=== PATIENT | female | born 1950 ===

== ENCOUNTER 2016-11-22 07:44 | Day surgery (SDC) | payer MEDICARE, OTHER ==
[~2016-11-22] VITALS: Ht 157.5 cm; Wt 76.7 kg
[2016-11-22] VITALS (8 sets, daily range): BP systolic 123–135; BP diastolic 65–74
[~2016-11-22 07:44] MED LIST: GLUCOPHAGE500 MG PO; KLONOPIN0.5 MG PO; LEVOXYL100 MCG PO; SERTRALINE HCL50 MG PO; SIMVASTATIN10 MG PO
[2016-11-22] MEDS ORDERED: LR 1000ml 1,000 ML IVLG SCH ×2 (08:05→09:11)
[2016-11-22] MEDS ORDERED: Lidocaine 1% MPF 10mg/ml 5ml ONE (08:45)
[2016-11-22] MEDS ORDERED: LR 1000ml ONE (08:45)
[2016-11-22] MEDS ORDERED: Propofol 10mg/ml 20ml IV ONE (08:45)
--- NOTE | 2016-11-22 08:49 | Short Stay Surgery H&P ---
History of Present Illness History of Present Illness Chief Complaint Abdominal pains/screening for colon cancer HPI Rabia Ibarra is a 66 year old female who was admitted on for Abdominal Pain/ screening colon Patient History Allergies: Coded Allergies: PENICILLINS (Verified Allergy, 03/13/12) UNABLE TO REMEMBER. "SO LONG AGO" PAST MEDICAL HISTORY: Past Surgeries: Social History: Medication History Scheduled Clonazepam* (Klonopin*), 0.5 MG PO HS, (Reported) Levothyroxine Sodium* (Levoxyl*), 100 MCG PO DAILY, (Reported) Metformin Hcl* (Glucophage*), 500 MG PO DAILY, (Reported) Sertraline Hcl* (Zoloft*), 50 MG PO DAILY, (Reported) Simvastatin (Zocor), 10 MG PO QHS, (Reported) Review of Systems Cardiovascular: Reports: no symptoms Respiratory: Reports: no symptoms Skeletal: Reports: no symptoms Gastrointestinal: Reports: gastro esophageal reflux disease Genitourinary: Reports: no symptoms Neurologic: Reports: no symptoms Endocrine: Reports: diabetes - type 2 Hematologic: Reports: no symptoms Physical Exam Vital Signs Last Vital Signs Date Time Temp Pulse Resp B/P Pulse Ox O2 Delivery O2 Flow Rate FiO2 11/22/16 08:13 97.8 60 18 129/65 95 Room Air Skin: normal HENT: normal Heart: normal Lungs: normal Abdomen: normal Extremities: normal Genitourinary: normal Plan Plan of Care Uppr and lower Gi endoscopy Preop Interventions None. Summary of Findings See the reports. Final Diagnosis: Attestation Are the patient's medical conditions optimized for surgery? Attestation Response: yes NISHI TURNER Nov 22, 2016 08:49
--- NOTE | 2016-11-22 08:50 | Pre-Procedure Note/Attestation ---
Pre-Procedure Note/Attestation Complete Prior to Procedure Planned Procedure: left Procedure Narrative: Upper and lower Gi endoscopy with possible biopsy Indications for Procedure Pre-Operative Diagnosis: R/O peptic ulcer/colon tumor/polyp Attestation I attest that I discussed the nature of the procedure; its benefits; risks and complications; and alternatives (and the risks and benefits of such alternatives ), prior to the procedure, with the patient (or the patient's legal solar sales representative). I attest that, if there was a reasonable possibility of needing a blood transfusion, the patient (or the patient's legal solar sales representative) was given the [facility] standardized written summary, pursuant to the [place] Blood Safety Act ([place] Health and Safety Code # 1645, as amended). I attest that I re-evaluated the patient just prior to the surgery and that there has been no change in the patient's H&P, except as documented below: YUE,SAID Nov 22, 2016 08:50
--- NOTE | 2016-11-22 09:11 | Anethesia Preoperative Eval ---
Anesthesia Pre-op PMH/ROS General Date of Evaluation: Nov 22, 2016 Time of Evaluation: 08:42 Anesthesiologist: scott ASA Score: ASA 2 Mallampati Score Class I : Soft palate, uvula, fauces, pillars visible Class II: Soft palate, uvula, fauces visible Class III: Soft palate, base of uvula visible Class IV: Only hard plate visible Mallampati Classification: Class II Surgeon: lauren Diagnosis: abdominal pain Surgical Procedure: gd/colonoscopy Anesthesia History: none Family History: no anesthesia problems Allergies: Coded Allergies: PENICILLINS (Verified Allergy, 03/13/12) UNABLE TO REMEMBER. "SO LONG AGO" Medications: see eMAR Past Medical History Neurologic/Psychiatric: Reports: depression/anxiety Endocrine: Reports: hypothyroidism Musculoskeletal/Integumentary: Reports: OA Anesthesia Pre-op Phys. Exam Physician Exam Last Vital Signs Date Time Temp Pulse Resp B/P Pulse Ox O2 Delivery O2 Flow Rate FiO2 11/22/16 08:13 97.8 60 18 129/65 95 Room Air Constitutional: NAD Neurologic: CN 2-12 intact Cardiovascular: RRR Respiratory: CTA Gastrointestinal: S/NT/ND Airway Exam Mallampati Score: Class II MO: full Neck: supple TMD: 2fb ROM: full Teeth: intact Anesthesia Pre-op A/P Risk Assessment & Plan Assessment: abd pain Plan: egd/colonoscopy Status Change Before Surgery: No Pre-Antibiotics Drug: ALIZE Tirado Nov 22, 2016 09:11
[2016-11-22] MEDS ORDERED: Hydromorphone 0.5mg/0.5ml inj IVP PRN (09:15)
[2016-11-22] MEDS ORDERED: Atropine Inj 1mg/10ml Syr IV PRN (09:15)
[2016-11-22] MEDS ORDERED: DiphenhydrAMINE 50mg/ml Inj IVP PRN (09:15)
[2016-11-22] MEDS ORDERED: Midazolam 2mg/2ml Inj IVP PRN (09:15)
--- NOTE | 2016-11-22 09:15 | Immediate Post-Op Evaluation ---
Immediate Post-Op Evalulation Immediate Post-Op Evalulation Procedure: egd/colonocopy Date of Evaluation: Nov 22, 2016 Time of Evaluation: 09:40 IV Fluids: lr 350ml Blood Products: none Estimated Blood Loss: negligible Blood Pressure Systolic: 135 Blood Pressure Diastolic: 70 Pulse Rate: 60 Respiratory Rate: 18 O2 Sat by Pulse Oximetry: 97 Temperature (Fahrenheit): 97.6 Pain Score (1-10): 0 Nausea: No Vomiting: No Complications none Patient Status: awake, reacts, patent Hydration Status: adequate Drug: ALIZE Tirado Nov 22, 2016 09:15
--- NOTE | 2016-11-22 09:18 | Endoscopy Procedure Note ---
Endoscopy Procedure Note Indication for Procedure: Abdominal pain/screening colon Procedures Performed: EGD - Small Hiatal hernia otherwise normal upper GI endoscopy. Biopsy obtained per random from gastric body., colonoscopy - Extremely difficult colonoscopy due to significant redundany of colon and poor prep. Internal hemorrhoids. Specimen: yes Pt Tolerated Procedure Well: Yes Estimated Blood Loss: none Anesthesiologist: Dr. Chery Anesthesia: moderate sedation Medication Given: see anesthesia record Implant(s) used?: No 50 yrs or older w/o bx or poly: Yes 10yrs. F/U not recommended: Yes If not recommended, why?: Med reason:<3 yrs.: Last colonoscopy >= to 3yrs: Yes NISHI TURNER Nov 22, 2016 09:18
--- NOTE | 2016-11-22 09:20 | Discharge Instructions ---
Discharge Instructions Discharge Instructions Follow up with: See the doctor in office after 2 weeks. For Congestive Heart Failure Reminder Report to your physician any weight gain of 5 pounds or more in one week. NISHI TURNER Nov 22, 2016 09:20
--- NOTE | 2016-11-22 11:01 | Operative Note - Dictated ---
DATE OF OPERATION: 11/22/2016 SURGEON: Susy Deleon M.D. PROCEDURE: Esophagogastroduodenoscopy with biopsy. PREOPERATIVE DIAGNOSES: 1. Abdominal pain. 2. Heartburn. POSTOPERATIVE DIAGNOSES: 1. Small hiatal hernia. 2. Otherwise normal upper gastrointestinal endoscopy. Biopsy was taken per random from gastric body. MEDICATION USED: Per Dr. Chery. INSTRUMENT: GIF Olympus upper gastrointestinal video endoscope. DESCRIPTION OF PROCEDURE: The patient after arriving an endoscopy unit, was told about risks and benefits of the procedure, which she accepted and signed the informed consent. She was then put on the left lateral decubitus position. After adequate IV sedation, the scope was gently passed through the cricopharyngeal area, was lodged into the upper esophagus, and gradually advanced towards gastroesophageal junction. The entire length of the esophagus looked normal. There was however evidence of a small hiatal hernia of no great significance and there was no Grady's. At this time, the scope was gradually advanced into the stomach. Gastric cavity was distended. Insufflation of air produced adequate visualization of the fundus and the body and the antrum which they all looked normal. No evidence of inflammatory process, ulceration, tumor polyps etc. was found. One random biopsy from gastric body obtained. Subsequently, scope was passed through the pylorus. First and second portion of duodenum was found to be also normal. Finally, scope was pulled out. The procedure was terminated. The patient tolerated the procedure well. Susy Deleon M.D. DR: TWILA JOB#: [id number] CC:
--- NOTE | 2016-11-22 11:31 | Operative Note - Dictated ---
SURGEON: Susy Deleon M.D. PROCEDURE: Total colonoscopy. PREOPERATIVE DIAGNOSIS: Screening colon. POSTOPERATIVE DIAGNOSES: Evidence of internal hemorrhoids and hemorrhoidal tag. Otherwise, complete normal total colonoscopy with significant difficult procedure due to high redundancy of the colon and poor preparation. MEDICATION USED: Per Dr. Chery. INSTRUMENT: GIF Olympus videocolonoscope. DESCRIPTION OF PROCEDURE: The patient after arriving endoscopy unit, was told about risks and benefits of the procedure, which she accepted and signed the informed consent. She was then put on the left lateral decubitus position. After adequate IV sedation, the scope was gently passed through the anal area, which revealed evidence of large hemorrhoidal tags and retroflexion maneuver, which was applied here revealed evidence of minimal internal hemorrhoids of no great significance. The colon cleanup was completely poor due to lack of adequate preparation and this made the examination quite difficult especially with the attention to the fact that the colon was highly redundant and significant amount of time with multiple attempts made to passed through this redundancy of the colon which was mostly in the left side. Finally, the scope was gradually passed toward the splenic flexure from the transverse colon, hepatic flexure, right colon all the way to the base of the cecum. There was no any particular visualized abnormalities such as polyps, tumors, strictures, inflammatory process, ulcers, etc. No one cannot rule out a small hyperplastic polyps due to lack of adequate preparation. At this point, upon reaching to the base of the cecum within 8 minutes, the scope was gradually pulled out and re-evaluation did not add any other abnormalities. The patient tolerated the procedure well and left the endoscopy room in a good condition. Susy Deleon M.D. DR: LUCITA JOB#: [id number] CC:
--- NOTE | 2016-11-22 15:51 | 48 Hour Post Anesthesia Eval ---
Post Anesthesia Evaluation Procedure: egd/colonocopy Date of Evaluation: Nov 22, 2016 Time of Evaluation: 09:45 Blood Pressure Systolic: 135 0: 70 Pulse Rate: 60 Respiratory Rate: 18 Temperature (Fahrenheit): 97.6 O2 Sat by Pulse Oximetry: 97 Airway: patent Nausea: No Vomiting: No Pain Intensity: 0 Hydration Status: adequate Cardiopulmonary Status: stable Mental Status/LOC: patient returned to baseline Post-Anesthesia Complications: none Follow-up care needed: N/A ALIZE CUBA Nov 22, 2016 15:51
== END 2016-11-22 10:25 | disposition home or self-care (01) ==
LOC: GAS 07:44
DX: Z12.11 Encounter for screening for malignant neoplasm of colon (principal); K64.8 Other hemorrhoids; K64.4 Residual hemorrhoidal skin tags; Q43.8 Other specified congenital malformations of intestine; K29.50 Unspecified chronic gastritis without bleeding; R12 Heartburn; K21.9 Gastro-esophageal reflux disease without esophagitis; K44.9 Diaphragmatic hernia without obstruction or gangrene; E11.9 Type 2 diabetes mellitus without complications; Z79.84 Long term (current) use of oral hypoglycemic drugs; E03.9 Hypothyroidism, unspecified; M19.90 Unspecified osteoarthritis, unspecified site; F32.9 Major depressive disorder, single episode, unspecified; F41.9 Anxiety disorder, unspecified; Z88.0 Allergy status to penicillin
CPT/HCPCS: 43239; 82962; G0121; J2704; J7120; 94003; 94150